=== PATIENT | male | born 1985 | race Hispanic/Latino ===

== ENCOUNTER 2017-06-16 09:04 | Emergency (ER) | payer MEDICAID ==
[2017-06-16] MEDS ORDERED: IBUPROFEN 600 MG TABLET ONE (09:31)
== END 2017-06-16 09:41 | disposition home or self-care (01) ==
LOC: EDH 09:04
DX: J01.10 Acute frontal sinusitis, unspecified (principal); F31.9 Bipolar disorder, unspecified; Z72.0 Tobacco use; Z88.8 Allergy status to other drugs, medicaments and biological substances
CPT/HCPCS: 99282

== ENCOUNTER 2019-11-30 02:53 | Emergency (ER) | payer MEDICAID ==
[2019-11-30] MEDS ORDERED: IBUPROFEN 400 MG TABLET ONE (05:14)
== END 2019-11-30 06:22 | disposition home or self-care (01) ==
LOC: EDH 02:53
DX: R06.00 Dyspnea, unspecified (principal); Z20.828 Contact with and (suspected) exposure to other viral communicable diseases; F41.9 Anxiety disorder, unspecified; F31.9 Bipolar disorder, unspecified; Z88.8 Allergy status to other drugs, medicaments and biological substances
CPT/HCPCS: 71045; 87426

== ENCOUNTER 2020-03-27 12:47 | Emergency (ER) | payer MEDICAID ==
[2020-03-27] MEDS ORDERED: IBUPROFEN 600 MG TABLET ONE (15:02)
== END 2020-03-27 15:54 | disposition home or self-care (01) ==
LOC: EDH 12:47
DX: J06.9 Acute upper respiratory infection, unspecified (principal); F41.9 Anxiety disorder, unspecified; F31.9 Bipolar disorder, unspecified; Z72.0 Tobacco use; Z88.8 Allergy status to other drugs, medicaments and biological substances
CPT/HCPCS: 87426; 87804 ×2; 99283; U0003

== ENCOUNTER 2022-10-26 03:02 | Emergency (ER) | payer MEDICAID ==
[~2022-10-26] VITALS: Ht 175.3 cm; Wt 119.7 kg
[2022-10-26 03:32] LABS: BASOPHILS % (AUTO) 0.2 % (0.0-5.0); HEMATOCRIT 53.9 % (42-54); LYMPHOCYTES % (AUTO) 6.9 % (21.0-51.0); MEAN CORPUSCULAR HEMOGLOBIN 27.4 pg (27.0-33.0); MEAN CORPUSCULAR HGB CONC 32.7 g/dL (32.0-36.0); NEUTROPHILS % (AUTO) 87.6 % (40.0-77.0); PLATELET COUNT (AUTO) 241 K/uL (130-400); RED BLOOD CELL COUNT(AUTO) 6.42 MIL/uL (4.50-6.20); RED CELL DISTRIBUTION WIDTH 13.5 % (11.0-15.5); WHITE BLOOD COUNT (AUTO) 13.3 K/uL (4.8-10.8)
[2022-10-26 03:41] LABS: CARBON DIOXIDE 24 mmol/L (21-32); CHLORIDE 106 mmol/L (101-111); CREATININE 2.7 mg/dL (0.5-1.5); GLOMERULAR FILTR. RATE CALC 31 mL/min (>90); GLUCOSE,RANDOM 130 mg/dL (70-105); POTASSIUM 3.7 mmol/L (3.5-5.1); SODIUM SERUM 146 mmol/L (136-145); UREA NITROGEN, BLOOD 18 mg/dL (7-18)
[2022-10-26 03:47] LABS: ALANINE AMINOTRANSFERASE 27 U/L (12-78); ASPARTATE AMINOTRANSFERASE 23 U/L (10-37); CREATINE KINASE, TOTAL 133 U/L (21-232); SALICYLATE 2.8 mg/dL (2.8-20.0); TOTAL PROTEIN, SERUM 7.6 g/dL (6.0-8.3)
[2022-10-26 04:09] LABS: INR 0.99 (0.85-1.15); PROTHROMBIN TIME 11.5 SEC (9.6-11.6)
[2022-10-26 04:11] LABS: PARTIAL THROMBOPLASTIN TIME 26.4 SEC (26.3-35.5)
[2022-10-26 04:12] LABS: ACETAMINOPHEN < 1 mcg/mL (10-29)
[2022-10-26] MEDS ORDERED: 0.9%NACL 1000ML 2,500 ML IV ONE (06:00)
[2022-10-26 06:04] LABS: APPEARANCE,URINE CLOUDY (CLEAR); BILIRUBIN,URINE NEGATIVE (NEGATIVE); COLOR,URINE YELLOW (YELLOW); GLUCOSE, URINE (UA) NEGATIVE (NEGATIVE); KETONES,URINE 10 mg/dL (NEGATIVE); LEUKOCYTE ESTERASE ,URINE NEGATIVE Leu/uL (NEGATIVE); NITRATE,URINE NEGATIVE (NEGATIVE); OCCULT BLOOD,URINE MODERATE (NEGATIVE); PH,URINE 5.5 (5.0-8.0); PROTEIN,URINE 70 mg/dL (NEGATIVE); UROBILINOGEN,URINE 0.2 mg/dL (0.2-1.0)
[2022-10-26 06:05] VITALS: BP 166/89; PULSE 121; RESP 20
[2022-10-26 06:16] LABS: AMPHET/METH SCREEN,URINE NEGATIVE (NEGATIVE); BARBITURATE SCREEN, URINE NEGATIVE (NEGATIVE); BENZODIAZEPINES SCREEN,URINE POSITIVE (NEGATIVE); CANNABINOID SCREEN,URINE NEGATIVE (NEGATIVE); COCAINE SCREEN,URINE POSITIVE (NEGATIVE); OPIATE SCREEN,URINE NEGATIVE (NEGATIVE); PHENCYCLIDINE SCREEN,URINE NEGATIVE (NEGATIVE)
[2022-10-26 06:18] LABS: BACTERIA,URINE RARE /HPF (None Seen); HYALINE CASTS, URINE >100 /LPF (0-1 /LPF); MUCUS,URINE MANY LPF (None Seen); SQUAMOUS EPITHELIAL CELL,UR FEW /HPF (0-2)
== END 2022-10-26 06:51 | disposition home or self-care (01) ==
LOC: EDH 03:02
DX: R41.0 Disorientation, unspecified (principal); F41.9 Anxiety disorder, unspecified
CPT/HCPCS: 99284; 82550; 84484; 80053; 80305; 85025; 85610; 85730; 87088; 81001; 36415; 93005; G0481